=== PATIENT | male | born 1940 | race Two or more races ===

== ENCOUNTER 2018-04-01 07:29 | Day surgery (SDC) | payer OTHER ==
--- NOTE | 2018-03-02 14:35 | HP ---
DATE OF ADMISSION: 03/11/2018 DATE OF DICTATION: 01/28/2018 DATE OF SURGERY: 03/11/2018 REASON FOR ADMISSION: Bilateral inguinal hernias. BRIEF HISTORY: This is a 77-year-old gentleman with greater than a 7-year history of having a left inguinal hernia. Patient states he has had progressive bulge in the left groin since that time and he also has a bulge in the right groin. Now with prolonged standing or mild strenuous activity, he has discomfort in the left groin region. This has prompted him to undergo a hernia repair. He has had no change in bowel habits. No nausea, no vomiting. PAST MEDICAL HISTORY: Patient has a history of cardiac disease, status post stent. He has a history of prostatism as well. PAST SURGICAL HISTORY: None. MEDICATIONS: Plavix, , baby aspirin, and Rapaflo. ALLERGIES: None. SOCIAL HISTORY: Patient does not smoke nor drink. PHYSICAL EXAMINATION: Patient examined in erect and supine position. He is placed through Valsalva maneuvers. The patient has a chronically incarcerated umbilical hernia, which is an incidental finding. The remainder of the abdominal examination is unremarkable. He has 2 inguinal hernias, left much greater than right. The left is a left inguinal hernia with extension in the proximal scrotum. The right one is medium to large hernia without extension to the proximal scrotum. Both scrotum and testicles are within normal limits and both hernias appear to be reducible. IMPRESSION/PLAN: Bilateral inguinal hernias: This is a 77-year-old gentleman becoming more symptomatic from a longstanding left inguinal hernia. On physical examination, he is noted to have a right inguinal hernia as well. I would recommend a laparoscopic repair of the bilateral inguinal hernias with mesh. Prior to this recommendation, we have discussed at length (1 hour) regarding the various surgical approaches such as open, lap, robotic with and without mesh. Prior to surgical intervention, the patient is being worked up for prostate cancer at this time. He is to undergo a cystoscopy with prostate biopsy in the next week or so. Pending these results, he will then undergo possibly a TURP type procedure. I have explained to him that we cannot do his hernia repair, if he has a TURP, for several weeks after the procedure due to translocation and microbacteria. The patient, therefore, will schedule surgery for some time in March, assuming he does not have prostate cancer. Prior to surgery, the patient understands he needs to come off of Plavix for approximately 5 days and not restart his Plavix for another 3 days. He will discuss this with his wet room supervisor. If this is possible, the patient will be done laparoscopically. If this is not possible, will plan to do an open left inguinal hernia repair. With regard to the umbilical hernia, this will not be addressed at this setting. The indications, alternatives, and complications discussed, questions answered. Will plan to obtain written consent the day of surgery. LEON TAVARES M.D. [id number] cc: Michael Hernandez MD, [place], [place], [phone]
[2018-03-30 17:35] VITALS: BMI 24.4
[2018-04-01] MEDS ORDERED: BUPIVACAINE HCL/PF 0.5% (5MG/ML) 10 ML VIAL ONE (07:39)
[2018-04-01] MEDS ORDERED: DEXAMETHASONE SOD PHOSPHATE 4 MG/1 ML VIAL ONE ×2 (07:39→08:17)
[2018-04-01] MEDS ORDERED: ePHEDrine SULFATE 50 MG/1 ML AMPULE ONE (08:12)
[2018-04-01] MEDS ORDERED: ceFAZolin SODIUM 1 GM VIAL ONE ×2 (08:12→08:17)
[2018-04-01] MEDS ORDERED: PROPOFOL 20 ML ONE ×4 (08:13)
[2018-04-01] MEDS ORDERED: ROCURONIUM BROMIDE 50 MG/5 ML VIAL ONE ×4 (08:13)
[2018-04-01] MEDS ORDERED: SUCCINYLCHOLINE CHLORIDE 200 MG/10 ML VIAL ONE (08:13)
[2018-04-01] MEDS ORDERED: fentaNYL CITRATE 250 MCG/5 ML VIAL ONE (08:14)
[2018-04-01] MEDS ORDERED: MIDAZOLAM HCL 2 MG/2 ML SINGLE DOSE VIAL ONE ×2 (08:14→08:32)
[2018-04-01] MEDS ORDERED: KETOROLAC TROMETHAMINE 30 MG/1 ML VIAL ONE (08:17)
[2018-04-01] MEDS ORDERED: DEXAMETHASONE SOD PHOSPHATE/PF 10 MG/ML SDV ONE (08:31)
[2018-04-01] MEDS ORDERED: ROPIVACAINE HCL 0.5% 30ML VIAL ONE (08:31)
[2018-04-01] MEDS ORDERED: ceFAZolin SODIUM 1 GM VIAL IVPB ONE (09:21)
[2018-04-01] MEDS ORDERED: NEOSTIGMINE METHYLSULFATE 0.5 MG/ML - 10 ML MDV ONE (09:51)
--- NOTE | 2018-04-01 10:04 | HP ---
DATE OF ADMISSION: 04/01/2018 BRIEF HISTORY: This is a 77-year-old gentleman who I initially evaluated in December 2017. Please refer to my H&P from that time for complete details. This is being re-dictated due to [facility] 30-day guidelines. Patient reevaluated today. He is a 77-year-old gentleman with a 7-year history of having left inguinal hernia. On physical examination, he has a contralateral hernia as well. He is here for both hernia repairs. PAST MEDICAL HISTORY: Significant for cardiac disease, status post stent, prostatism. PAST SURGICAL HISTORY: None. MEDICATIONS: Plavix, baby aspirin and Rapaflo. ALLERGIES: None. SOCIAL HISTORY: He a nonsmoker, drinks. PHYSICAL EXAMINATION: Abdomen: The abdomen is soft, nontender, nondistended. He has bilateral inguinal hernias, left greater than right. The left hernia extends into the proximal scrotum. Bilateral large inguinal hernias, left greater than right. Patient has a left inguinal scrotal hernia, which is chronically incarcerated and cannot be completely reduced. He is now here for repair of both hernias. The indications, alternatives and complications discussed, questions answered. Will plan to obtain written consent today at surgery. Eugenio COPELAND [id number] cc: Michael Hernandez M.D.
[2018-04-01] MEDS ORDERED: ONDANSETRON 4 MG/2 ML VIAL IVPUSH PRN (11:17)
[2018-04-01] MEDS ORDERED: oxyCODONE HCL 5 MG TABLET PO PRN ×2 (11:17)
[2018-04-01] MEDS ORDERED: LACTATED RINGERS SOLUTION 1,000 ML IV SCH (11:30)
[2018-04-01 11:41] VITALS: TEMP 97.7
--- NOTE | 2018-04-01 12:21 | OP ---
DATE OF OPERATION: 04/01/2018 PREOPERATIVE DIAGNOSES: Large complex left inguinal scrotal hernia, chronically incarcerated; right inguinal hernia. POSTOPERATIVE DIAGNOSES: Bilateral incarcerated, direct inguinal hernias. PROCEDURE: Laparoscopic repair of incarcerated left inguinal hernia with mesh, laparoscopic repair of incarcerated right inguinal hernia with mesh. SURGEON: Nile Huang MD TRANSPORT PILOT: Donn Eller DO ANESTHESIA: Gorge Veliz MD (general). ESTIMATED BLOOD LOSS: Minimal. SPECIMEN: None. INDICATION FOR PROCEDURE: This is a 77-year-old gentleman symptomatic from a very longstanding left inguinal hernia. He is now here for operative repair. DESCRIPTION OF PROCEDURE: The patient was identified and appropriately positioned on the operating table. After placement of general anesthesia, the abdomen was prepped and draped in the usual sterile fashion with ChloraPrep. An infraumbilical incision was made and deepened through the subcutaneous tissue. The fascia on the left was divided, the muscles split under direct vision. Dissector balloon followed by structural balloon placed. Also, under direct vision, a suprapubic 11-mm port placed. The following structures on the left side identified: Pubic tubercle, Quentin ligament, inferior epigastric vessels, spermatic cord, and lateral abdominal wall. During this dissection, patient had incarcerated direct inguinal hernia containing fat. This was reduced back in the preperitoneal space. He had a small indirect inguinal hernia sac, also reduced back in the preperitoneal space. A 4.5 x 6 piece of Versatex mesh was keel placed through the suprapubic port site. The mesh was wrapped around the cord structures laterally to reconstruct the internal ring. Laterally, the mesh anchored to the anterior abdominal wall and lateral abdominal wall. Medially, the mesh anchored to the anterior abdominal wall, pubic tubercle, and Quentin ligament. During reduction of the sac, the patient had a small peritoneotomy. It was subsequently closed with a [employer] clip linux server engineer. Upon completion of the left side, similar structures on the right side identified. On the right side, he had a direct component containing fat and a portion of bladder. This reduced back in the preperitoneal space with blunt dissection. He had no true indirect inguinal hernia sac. Another 4.5 x 6 piece of Versatex mesh was keel placed through the suprapubic port site. The mesh was wrapped around the cord structures laterally to reconstruct the internal ring. Laterally, the mesh anchored to the anterior abdominal wall and lateral abdominal wall. Medially, the mesh well overlapped in the midline, anchored to the anterior abdominal wall, pubic tubercle, and Quentin ligament. The preperitoneal space was desufflated under direct vision. The operative field noted to be hemostatic. The fascia at both port sites reapproximated with interrupted 0 Vicryl suture. All skin closed with 4-0 subcuticular Biosyn, followed by Dermabond. All anterior abdominal wall and lateral abdominal wall anchors placed under direct counterpalpation. The mesh used was Versatex 4-1/2 to 5 inches x 6 inches, and the peritoneotomy was closed with the [employer] 10-mm clip linux server engineer. At the conclusion of this case, sponge and needle counts were correct. ATTESTATION: A brief operative note handwritten on the preprinted form. [facility] queried prior to giving any narcotics. Eugenio COPELAND [id number] cc: Michael Hernandez MD MTDD
[2018-04-01 16:59] VITALS: BP 136/76; PULSE 88
== END 2018-04-01 16:30 | disposition home or self-care (01) ==
LOC: JASU-SURG 07:29
PROVIDERS: ATTEND Surgery
PROC: 0YUA4JZ Supplement Bilateral Inguinal Region with Synthetic Substitute, Percutaneous Endoscopic Approach (ICD-10-PCS; principal; 2018-04-01 09:00)
DX: K40.00 Bilateral inguinal hernia, with obstruction, without gangrene, not specified as recurrent (principal)
CPT/HCPCS: 94760

== ENCOUNTER 2018-04-02 06:14 | Emergency (ER) | payer OTHER ==
[2018-04-02 06:46] VITALS: BP 182/83; PULSE 85; TEMP 98.9; BMI 25.8
[2018-04-02 06:51] LABS: URINE APPEARANCE CLEAR; URINE BILIRUBIN NEGATIVE (<2.0 mg/dL); URINE COLOR LTYELLOW; URINE GLUCOSE (UA) 1+ (NEGATIVE); URINE KETONE NEGATIVE (NEGATIVE); URINE LEUK ESTERASE NEGATIVE (NEGATIVE); URINE NITRITE NEGATIVE (NEGATIVE); URINE PROTEIN NEGATIVE (NEGATIVE); URINE UROBILINOGEN NEGATIVE mg/dL (0.2-1.0)
--- NOTE | 2018-04-02 07:11 | PDOC ---
Attending Attestation - Resident Resident Name: Vic Grove - ED Attending Attestation I have performed the following: I have examined & evaluated the patient, The case was reviewed & discussed with the resident, I agree w/resident's findings & plan, Exceptions are as noted - HPI HPI: 04/02/18 07:12 77y M hx of bph, sp hernia repair sp bustillo placement during procedure yesterday presents with urinary retention and hesitency. complaining of lower abd pressure bustillo placed after ED arrival with resolution of sypmtoms - Physicial Exam PE: 04/02/18 07:34 general: well appearing, no acute distress gu: has bustillo in place abd: midline scar romie tis slightly ecchymotic, otherwise c/d/i, slightly tender to palpation at site of incision, no rebound/guarding - Medical Decision Making 04/02/18 07:32 ua neg for uti will dc the pt to fu with dr. kumari
--- NOTE | 2018-04-02 07:23 | PDOC ---
History of Present Illness - General Chief Complaint: Urinary Problem Stated Complaint: URINARY PROBLEM Time Seen by Provider: 04/02/18 07:01 History Source: Patient Exam Limitations: No Limitations - History of Present Illness Initial Comments: 04/02/18 07:17 Patient is a 77M with history of CAD s/p stents, abdominal hernia repair yesterday, and enlarged prostate here today complaining of urinary retention. He states that he has only been able to dribble out a small amount of urine starting yesterday. Endorses subjective fevers, chills and lower abdominal pressure. Denies nausea, vomiting, leg swelling, history of blood clots, chest pain, and shortness of breath. Past History - Past Medical History Allergies/Adverse Reactions: Allergies Allergy/AdvReac Type Severity Reaction Status Date / Time No Known Allergies Allergy Verified 04/02/18 06:28 Home Medications: Ambulatory Orders Clopidogrel Bisulfate [Plavix -] 75 mg PO DAILY 01/31/14 Simvastatin 20 mg PO DAILY 03/30/18 Aspirin [Aspirin EC] 81 mg PO DAILY 04/01/18 Oxycodone HCl/Acetaminophen [Percocet 5-325 mg Tablet] 1 tab PO Q4H PRN #20 tablet MDD 6 04/01/18 Silodosin [Rapaflo] 8 mg PO DAILY 04/01/18 Anemia: No Asthma: No Cancer: No Cardiac Disorders: Yes (MD 10 YEARS AGO. STENTS X4.) CVA: No COPD: No CHF: No Dementia: No Diabetes: No GI Disorders: No Disorders: No HTN: Yes Hypercholesterolemia: Yes Liver Disease: No Psychiatric Problems: Yes (anxiety) Seizures: No Thyroid Disease: No - Surgical History Abdominal Surgery: No Appendectomy: No Cardiac Surgery: Yes (STENTS X4.) Cholecystectomy: No Lung Surgery: No Neurologic Surgery: No Orthopedic Surgery: No - Suicide/Smoking/Psychosocial Hx Smoking History: Never smoked Have you smoked in the past 12 months: No Information on smoking cessation initiated: No Hx Alcohol Use: No Drug/Substance Use Hx: No Substance Use Type: Alcohol Hx Substance Use Treatment: No Review of Systems - Review of Systems Comments:: 04/02/18 07:20 GENERAL/CONSTITUTIONAL: Positive for fever or chills. No weakness. HEAD, EYES, EARS, NOSE AND THROAT: No change in vision. No sore throat. CARDIOVASCULAR: No chest pain or shortness of breath RESPIRATORY: No cough, wheezing, or hemoptysis. GASTROINTESTINAL: No nausea, vomiting, diarrhea or constipation. GENITOURINARY: Positive for dysuria, frequency and blood in urine MUSCULOSKELETAL: No joint or muscle swelling or pain. No neck or back pain. SKIN: No rash NEUROLOGIC: No headache, vertigo, loss of consciousness, or change in strength/ sensation. HEMATOLOGIC/LYMPHATIC: No anemia, easy bleeding, or history of blood clots. ALLERGIC/IMMUNOLOGIC: No hives or skin allergy. *Physical Exam - Vital Signs Last Vital Signs Temp Pulse Resp BP Pulse Ox 98.9 F 85 18 182/83 98 04/02/18 06:28 04/02/18 06:28 04/02/18 06:28 04/02/18 06:28 04/02/18 06:28 - Physical Exam Comments: 04/02/18 07:21 GENERAL: Awake, alert, and fully oriented, in no acute distress, bustillo placed HEAD: No signs of trauma, normocephalic, atraumatic EYES: PERRLA, EOMI, sclera anicteric, conjunctiva clear NECK: Normal ROM, supple, no lymphadenopathy, JVD, or masses LUNGS: No distress, speaks full sentences, clear to auscultation bilaterally HEART: Regular rate and rhythm, normal S1 and S2, no murmurs, rubs or gallops, peripheral pulses normal and equal bilaterally. ABDOMEN: Soft, nontender, normoactive bowel sounds. No guarding, no rebound. No masses EXTREMITIES: Normal inspection, Normal range of motion, no edema. No clubbing or cyanosis. NEUROLOGICAL: Cranial nerves II through XII grossly intact. Normal speech, no focal sensorimotor deficits SKIN: Warm, Dry, normal turgor, no rashes or lesions noted. ED Treatment Course - ADDITIONAL ORDERS Additional order review: Laboratory Results 04/02/18 06:30 Urine Color Ltyellow Urine Appearance Clear Urine pH 6.0 Ur Specific [place] 1.012 Urine Protein Negative Urine Glucose (UA) 1+ H Urine Ketones Negative Urine Blood Negative Urine Nitrite Negative Urine Bilirubin Negative Urine Urobilinogen Negative Ur Leukocyte Esterase Negative Medical Decision Making - Medical Decision Making 04/02/18 07:21 Patient is 77M with history of CAD and enlarged prostate here today with urinary retention. Vital signs stable. Patient drained 1.1L after placement. Urologist is [place]. Will evaluate further with UA. Call out to Dr Duncan , will d/c with leg bag. 04/02/18 07:24 Laboratory Tests 04/02/18 06:30 Urine Nitrite Negative Ur Leukocyte Esterase Negative UA negative. *DC/Admit/Observation/Transfer Diagnosis at time of Disposition: Urinary retention - Discharge Dispostion Disposition: HOME Condition at time of disposition: Good Decision to Admit order: No - Referrals Referrals: Michael Hernandez MD [Primary Care Provider] - Donn Duncan MD [Staff Physician] - - Patient Instructions Printed Discharge Instructions: How to Care for Your Bustillo Catheter -- Male, DI for Urinary Retention in Men Additional Instructions: Please return if you have any new, worsening or concerning symptoms. Please see the packet of information for how to care for your bustillo catheter. Please call Dr Duncan today to setup follow up, his number is included in your discharge instructions. - Post Discharge Activity
== END 2018-04-02 07:38 | disposition home or self-care (01) ==
LOC: JER 06:14
PROC: 0T9B70Z Drainage of Bladder with Drainage Device, Via Natural or Artificial Opening (ICD-10-PCS; principal; 2018-04-02)
DX: R33.9 Retention of urine, unspecified (principal); I25.10 Atherosclerotic heart disease of native coronary artery without angina pectoris; I25.2 Old myocardial infarction; I10 Essential (primary) hypertension; E78.00 Pure hypercholesterolemia, unspecified; F41.9 Anxiety disorder, unspecified; Z95.5 Presence of coronary angioplasty implant and graft
CPT/HCPCS: 51702; 81003; 87086; 99283-25

== ENCOUNTER 2018-04-05 22:03 | Emergency (ER) | payer OTHER ==
[2018-04-05 22:07] VITALS: BP 141/71; PULSE 83; TEMP 98.2; BMI 25.1
--- NOTE | 2018-04-05 22:18 | PDOC ---
History of Present Illness - General Chief Complaint: Urinary Problem Stated Complaint: URINARY PROBLEM Time Seen by Provider: 04/05/18 22:10 History Source: Patient Exam Limitations: No Limitations - History of Present Illness Initial Comments: This is a 77 YOM who is POD #4 from laparoscopic bilateral inguinal hernia repair (with outside surgeon), with h/o CAD s/p multiple stents, BPH with urinary retention requiring Marrero catheter placed 04/02/18 and removed this afternoon at about 1500 at his urologist's office (in [place]), who p/w inability to urinate since shortly after the catheter was removed. He was initially able to urinate normally, but now has only been able to urinate a few drops. He feels that his lower abdomen is distended and notes worsened lower abdominal pain. Today in the urologist's office he was given a prescription for one dose of ciprofloxacin to prevent UTI, which he took this afternoon. Past History - Past Medical History Allergies/Adverse Reactions: Allergies Allergy/AdvReac Type Severity Reaction Status Date / Time No Known Allergies Allergy Verified 04/05/18 22:06 Home Medications: Ambulatory Orders Clopidogrel Bisulfate [Plavix -] 75 mg PO DAILY 01/31/14 Simvastatin 20 mg PO DAILY 03/30/18 Aspirin [Aspirin EC] 81 mg PO DAILY 04/01/18 Oxycodone HCl/Acetaminophen [Percocet 5-325 mg Tablet] 1 tab PO Q4H PRN #20 tablet MDD 6 04/01/18 Silodosin [Rapaflo] 8 mg PO DAILY 04/01/18 Anemia: No Asthma: No Cancer: No Cardiac Disorders: Yes (MS 10 YEARS AGO. STENTS X4.) CVA: No COPD: No CHF: No Dementia: No Diabetes: No GI Disorders: No Disorders: No HTN: Yes Hypercholesterolemia: Yes Liver Disease: No Psychiatric Problems: Yes (anxiety) Seizures: No Thyroid Disease: No - Surgical History Abdominal Surgery: No Appendectomy: No Cardiac Surgery: Yes (STENTS X4.) Cholecystectomy: No Lung Surgery: No Neurologic Surgery: No Orthopedic Surgery: No - Suicide/Smoking/Psychosocial Hx Smoking History: Never smoked Have you smoked in the past 12 months: No Hx Alcohol Use: No Drug/Substance Use Hx: No Substance Use Type: Alcohol Hx Substance Use Treatment: No Review of Systems - Review of Systems Able to Perform ROS?: Yes Constitutional: Yes: Chills. No: Fever, Unexplained wgt Loss HEENTM: No: Nose Congestion, Throat Pain Respiratory: No: Cough, Shortness of Breath Cardiac (ROS): No: Chest Pain, Palpitations ABD/GI: Yes: Other (lower abdominal pain and distention). No: Constipated, Diarrhea, Nausea, Vomiting : Yes: Other (urinary retention). No: Burning, Dysuria Musculoskeletal: No: Back Pain, Neck Pain Integumentary: No: Bruising, Rash Neurological: No: Headache, Numbness, Tingling, Weakness, Dizziness Endocrine: No: Unexplained Weight Gain, Unexplained Weight Loss *Physical Exam - Vital Signs Last Vital Signs Temp Pulse Resp BP Pulse Ox 98.2 F 83 18 141/71 98 04/05/18 22:06 04/05/18 22:06 04/05/18 22:06 04/05/18 22:06 04/05/18 22:06 - Physical Exam General Appearance: Yes: Nourished, Other (alert and oriented eldelry male accompanied by family at bedside, appears uncomfortable, wincing with pain when attempting to urinate). No: Apparent Distress HEENT: positive: EOMI, Normal Voice, Hearing Grossly Normal. negative: Scleral Icterus (R), Scleral Icterus (L), Nasal Congestion Neck: positive: Trachea midline, Supple. negative: Tender, Rigid Respiratory/Chest: positive: Lungs Clear, Normal Breath Sounds. negative: Respiratory Distress, Crackles, Rhonchi, Stridor, Wheezing Cardiovascular: positive: Regular Rhythm, Regular Rate. negative: Murmur Gastrointestinal/Abdominal: positive: Normal Bowel Sounds, Tender (mild suprapubic tenderness to palpation, periumbilical ecchymosis and healing laparoscopy incisions noted which are CDI), Soft. negative: Organomegaly, Pulsatile Mass, Guarding Male Genitalia: positive: other (indwelling Marrero catheter) Musculoskeletal: positive: Normal Inspection. negative: Decreased Range of Motion, Vertebral Tenderness Extremity: positive: Normal Capillary Refill, Normal Inspection, Normal Range of Motion. negative: Tender, Cyanosis Integumentary: positive: Normal Color, Dry, Warm. negative: Erythema, Rash, Bruising Neurologic: positive: litigation partner II-XII NML intact, Fully Oriented, Alert, Normal Mood/ Affect, Normal Response, Motor Strength 5/5 ED Treatment Course - LABORATORY CBC & Chemistry Diagram: 04/05/18 23:18 Medical Decision Making - Medical Decision Making Adult male Pt w/ h/o BPH p/w urinary retention and painful urination since this afternoon when Marrero removed.. Initial Vital Signs Temp Pulse Resp BP Pulse Ox 98.2 F 83 18 141/71 98 04/05/18 22:06 04/05/18 22:06 04/05/18 22:06 04/05/18 22:06 04/05/18 22:06 Exam: DDX IBNLT: BPH with obstruction, UTI, pyelonephritis, ureteral stone, interstitial cystitis, neurogenic bladder, urethritis, prostatitis, STI/STD, epididymitis, orchitis, torsion, hernia, etc. Extra concern for post-obstructive diuresis after Marrero replacement. W/U ordered: UA UCx CMP TX ordered: Marrero Laboratory Tests 04/05/18 04/06/18 23:18 00:22 Sodium 131 L Potassium 3.4 L Chloride 98 Carbon Dioxide 23 Anion Gap 10 BUN 12 Creatinine 0.9 Creat Clearance w eGFR > 60 Random Glucose 127 H Calcium 8.6 Total Bilirubin 1.3 H AST 17 ALT 27 Alkaline Phosphatase 66 Total Protein 7.0 Albumin 3.8 Urine Color Straw Urine Appearance Clear Urine pH 6.0 Ur Specific [place] 1.004 Urine Protein Negative Urine Glucose (UA) Negative Urine Ketones Negative Urine Blood 2+ H Urine Nitrite Negative Urine Bilirubin Negative Urine Urobilinogen Negative Ur Leukocyte Esterase Negative Urine WBC (Auto) 1 Urine RBC (Auto) <1 Urine Mucus Rare Reassessment: Exam Laboratory Tests 04/05/18 04/06/18 23:18 00:22 Sodium 131 L Potassium 3.4 L Chloride 98 Carbon Dioxide 23 Anion Gap 10 BUN 12 Creatinine 0.9 Creat Clearance w eGFR > 60 Random Glucose 127 H Calcium 8.6 Total Bilirubin 1.3 H AST 17 ALT 27 Alkaline Phosphatase 66 Total Protein 7.0 Albumin 3.8 Urine Color Straw Urine Appearance Clear Urine pH 6.0 Ur Specific [place] 1.004 Urine Protein Negative Urine Glucose (UA) Negative Urine Ketones Negative Urine Blood 2+ H Urine Nitrite Negative Urine Bilirubin Negative Urine Urobilinogen Negative Ur Leukocyte Esterase Negative Urine WBC (Auto) 1 Urine RBC (Auto) <1 Urine Mucus Rare Patient puts out 1.6 liters urine since Marrero placement. However CMP is wnl and UA is not concerning. I have low suspicion for post-obstructive diuresis and kidney damage. The Pt is appropriate for discharge with close outpatient follow up. Workup is not concerning for emergency-level pathology at this time. The Pt is comfortable with this plan and will follow up with their PCP and urologist in 1-3 days. Specific return precautions are discussed and they will come back to the ER if necessary. *DC/Admit/Observation/Transfer Diagnosis at time of Disposition: Urinary retention BPH (benign prostatic hyperplasia) Qualifiers: Lower urinary tract symptom presence: symptoms present Lower urinary tract symptom detail: urinary obstruction Qualified Code(s): N40.1 - Benign prostatic hyperplasia with lower urinary tract symptoms - Discharge Dispostion Disposition: HOME Condition at time of disposition: Stable Decision to Admit order: No - Referrals Referrals: Michael Hernandez MD [Primary Care Provider] - - Patient Instructions Printed Discharge Instructions: DI for Benign Prostatic Hyperplasia Additional Instructions: You were seen in the ER for urinary retention and lower abdominal pain. We placed a Marrero catheter and this relieved your symptoms. We did blood and urine labs, and there were no abnormalities. After our assessment, we do not believe you are having a medical emergency at this time, and we believe you are safe to go home. Please take your regular prostate medications and follow up with your urologist tomorrow. Follow up with your primary doctor in 1-3 days. Call their clinic [facility], tell them you were seen in the ER, and tell them you need an appointment. Please come back to the ER at any time, 24 hours a day, for any new or worsening symptoms, like worsened pain or urine retention, discharge, fever, testicular/scrotal pain or swelling, or other symptoms. If you are having severe or life threatening symptoms, or symptoms that make it unsafe to drive or have someone drive you, please call 911. - Post Discharge Activity
[2018-04-05 23:49] LABS: ALBUMIN 3.8 g/dl (3.4-5.0); ANION GAP 10 (8-16); BLOOD UREA NITROGEN 12 mg/dL (7-18); CALCIUM 8.6 mg/dL (8.5-10.1); CHLORIDE 98 mmol/L (98-107); CO2 23 mmol/L (21-32); CREATININE 0.9 mg/dL (0.7-1.3); GLUCOSE,RANDOM 127 mg/dL (74-106); SGPT/ALT 27 U/L (12-78); SODIUM 131 mmol/L (136-145)
[2018-04-05 23:50] LABS: ALK PHOS 66 U/L (45-117); BILIRUBIN,TOTAL 1.3 mg/dL (0.2-1.0)
[2018-04-05 23:53] LABS: POTASSIUM 3.4 mmol/L (3.5-5.1); SGOT/AST 17 U/L (15-37)
--- NOTE | 2018-04-06 00:22 | PDOC ---
Attending Attestation - Resident Resident Name: MccarthyDesire - ED Attending Attestation I have performed the following: I have examined & evaluated the patient, The case was reviewed & discussed with the resident, I agree w/resident's findings & plan, Exceptions are as noted - HPI HPI: 04/06/18 06:01 Agree with residents note - Physicial Exam PE: 04/06/18 06:01 Agree with residents note - Medical Decision Making 04/06/18 00:26 Patient postop day 4 status post laparoscopic bilateral hernia repair had Marrero removed this afternoon now with urinary retention. Marrero replaced 600 mL drained we'll check chemistry and UA Patient feels much better comfortable no abdominal pain on exam Patient will follow up with his urologist in 1-2 days Findings, need for follow-up and strict return instructions discussed patient.
[2018-04-06 00:35] LABS: URINE APPEARANCE CLEAR; URINE BILIRUBIN NEGATIVE (<2.0 mg/dL); URINE BLOOD 2+ (NEGATIVE); URINE COLOR STRAW; URINE GLUCOSE (UA) NEGATIVE (NEGATIVE); URINE KETONE NEGATIVE (NEGATIVE); URINE LEUK ESTERASE NEGATIVE (NEGATIVE); URINE NITRITE NEGATIVE (NEGATIVE); URINE PROTEIN NEGATIVE (NEGATIVE); URINE UROBILINOGEN NEGATIVE mg/dL (0.2-1.0)
[2018-04-06 00:54] LABS: URINE MUCUS RARE
== END 2018-04-06 01:56 | disposition home or self-care (01) ==
LOC: JER 22:03
PROC: 0T9B70Z Drainage of Bladder with Drainage Device, Via Natural or Artificial Opening (ICD-10-PCS; principal; 2018-04-05)
DX: R33.9 Retention of urine, unspecified (principal); N40.1 Benign prostatic hyperplasia with lower urinary tract symptoms; I25.10 Atherosclerotic heart disease of native coronary artery without angina pectoris; Z95.5 Presence of coronary angioplasty implant and graft; I10 Essential (primary) hypertension; F41.9 Anxiety disorder, unspecified; I25.2 Old myocardial infarction
CPT/HCPCS: 36415; 80053; 81003; 81015; 87086; 99281-25

== ENCOUNTER 2018-04-24 11:59 | Inpatient (IN) | payer OTHER ==
[2018-04-24] MEDS ORDERED: SODIUM CHLORIDE 1,000 ML IV STA ×2 (12:28→13:45)
[2018-04-24] MEDS ORDERED: ACETAMINOPHEN 1000 MG/100 ML VIAL (NON FORMULARY) IVPB ONE (12:30)
[2018-04-24] MEDS ORDERED: MORPHINE SULFATE 2 MG/ML VIAL IVPUSH ONE (12:34)
[2018-04-24] MEDS ORDERED: MORPHINE SULFATE 2 MG/ML VIAL ONE ×3 (12:42→16:24)
[2018-04-24] MEDS ORDERED: ACETAMINOPHEN INJECTION 100 ML IVPB ONE (12:42)
--- NOTE | 2018-04-24 12:53 | PDOC ---
History of Present Illness <Logan Fine - Last Filed: 04/24/18 14:14> - History of Present Illness Initial Comments: 04/24/18 12:47 "The patient is a 77 year old male with a significant PMH of hernia surgery on c/b urinary retention s/p bustillo placement, recent UTI, AL (s/p stents, on Plavix), HTN, and hyperlipidemia who presents to the emergency department with suprapubic pain, rectal burning, fevers, chills, and decreased appetite x2 days. The patients son states the patient has had a bustillo since 04/01 for urinary retention. He has failed multiple trials of void since then. Yesterday, pt was evaluated by his urologist and had a procedure done on his prostate. Pt subsequently developed severe rectal pain. Denies BRBPR or dark tarry stools. Pt was evaluated at [place] ED yesterday for this pain and was diagnosed with UTI. Pt was started on levaquin and pyridium, but patient presents today with persistent dysuria and rectal burning as well as subjective fevers, chills , and decreased appetite. The patient denies chest pain, shortness of breath, headache and dizziness. Denies nausea, vomit, diarrhea and constipation. Allergies: NKA Past surgical history: Cardiac stents x4. Social history: Occasional alcohol use. No reported cigarette or drug use. PCP: Dr. Michael Hernandez <Michael Garcia - Last Filed: 04/24/18 14:56> - General Chief Complaint: Pain, Acute Stated Complaint: Shortness of Breath Time Seen by Provider: 04/24/18 12:11 Past History <Logan Fine - Last Filed: 04/24/18 14:14> - Past Medical History Anemia: No Asthma: No Cancer: No Cardiac Disorders: Yes (AL 10 YEARS AGO. STENTS X4.) CVA: No COPD: No CHF: No Dementia: No Diabetes: No GI Disorders: No Disorders: No HTN: Yes Hypercholesterolemia: Yes Liver Disease: No Psychiatric Problems: Yes (anxiety) Seizures: No Thyroid Disease: No - Surgical History Abdominal Surgery: No Appendectomy: No Cardiac Surgery: Yes (STENTS X4.) Cholecystectomy: No Lung Surgery: No Neurologic Surgery: No Orthopedic Surgery: No - Immunization History Immunization Up to Date: Yes - Suicide/Smoking/Psychosocial Hx Smoking History: Never smoked Have you smoked in the past 12 months: No Information on smoking cessation initiated: No Hx Alcohol Use: No Drug/Substance Use Hx: No Substance Use Type: Alcohol Hx Substance Use Treatment: No <Michael Garcia - Last Filed: 04/24/18 14:56> - Past Medical History Allergies/Adverse Reactions: Allergies Allergy/AdvReac Type Severity Reaction Status Date / Time No Known Allergies Allergy Verified 04/24/18 12:04 Home Medications: Ambulatory Orders Clopidogrel Bisulfate [Plavix -] 75 mg PO DAILY 01/31/14 Simvastatin 20 mg PO DAILY 03/30/18 Aspirin [Aspirin EC] 81 mg PO DAILY 04/01/18 Oxycodone HCl/Acetaminophen [Percocet 5-325 mg Tablet] 1 tab PO Q4H PRN #20 tablet MDD 6 04/01/18 Silodosin [Rapaflo] 8 mg PO DAILY 04/01/18 Review of Systems - Review of Systems Comments:: 04/24/18 12:54 "GENERAL/CONSTITUTIONAL: (+) Fevers (+) Chills. (+) Decreased appetite. No weakness. HEAD, EYES, EARS, NOSE AND THROAT: No change in vision. No ear pain or discharge. No sore throat. CARDIOVASCULAR: No chest pain or shortness of breath. RESPIRATORY: No cough, wheezing, or hemoptysis. GASTROINTESTINAL: (+) Rectal burning. No nausea, vomiting, diarrhea or constipation. GENITOURINARY: (+) Dysuria. No frequency, or change in urination. MUSCULOSKELETAL: No joint or muscle swelling or pain. No neck or back pain. SKIN: No rash NEUROLOGIC: No headache, vertigo, loss of consciousness, or change in strength/ sensation. ENDOCRINE: No increased thirst. No abnormal weight change. HEMATOLOGIC/LYMPHATIC: No anemia, easy bleeding, or history of blood clots. ALLERGIC/IMMUNOLOGIC: No hives or skin allergy. " <Michael Garcia - Last Filed: 04/24/18 14:56> *Physical Exam - Vital Signs Last Vital Signs Temp Pulse Resp BP Pulse Ox 98.0 F 94 H 17 116/68 100 04/24/18 12:05 04/24/18 12:33 04/24/18 12:05 04/24/18 12:05 04/24/18 12:33 <Logan Fine - Last Filed: 04/24/18 14:14> - Vital Signs Last Vital Signs Temp Pulse Resp BP Pulse Ox 98.0 F 104 H 17 116/68 98 04/24/18 12:05 04/24/18 12:05 04/24/18 12:05 04/24/18 12:05 04/24/18 12:05 - Physical Exam Comments: 04/24/18 12:54 "GENERAL: Awake, alert, and fully oriented, in no acute distress. HEAD: No signs of trauma EYES: PERRLA, EOMI, sclera anicteric, conjunctiva clear ENT: Auricles normal inspection, hearing grossly normal, nares patent, oropharynx clear without exudates. Moist mucosa NECK: Nontender, no stepoffs, Normal ROM, supple, no lymphadenopathy, JVD, or masses LUNGS: Breath sounds equal, clear to auscultation bilaterally. No wheezes, and no crackles HEART: Regular rate and rhythm, normal S1 and S2, no murmurs, rubs or gallops ABDOMEN: Soft, nontender, normoactive bowel sounds. No guarding, no rebound. No masses EXTREMITIES: Normal range of motion, no edema. No clubbing or cyanosis. No cords , erythema, or tenderness NEUROLOGICAL: Cranial nerves II through XII intact. 5/5 strength and sensation in all extremities, Normal speech, normal gait, normal cerebellar function SKIN: Warm, Dry, normal turgor, no rashes or lesions noted. : Bustillo in place draining dark yellow urine, + L CVA tenderness <Michael Garcia - Last Filed: 04/24/18 14:56> ED Treatment Course - LABORATORY CBC & Chemistry Diagram: 04/24/18 12:52 04/24/18 12:52 - ADDITIONAL ORDERS Additional order review: Laboratory Results 04/24/18 04/24/18 04/24/18 13:14 12:52 12:52 PT with INR INR PTT (Actin FS) VBG pH POC VBG pCO2 POC VBG pO2 Mixed VBG HCO3 Sodium Potassium Chloride Carbon Dioxide Anion Gap BUN Creatinine Creat Clearance w eGFR Random Glucose Lactic Acid 1.9 Calcium Total Bilirubin AST ALT Alkaline Phosphatase Troponin I < 0.02 Total Protein Albumin Urine Color Dk yellow Urine Appearance Clear Urine pH 6.0 Ur Specific Collins 1.005 Urine Protein 1+ H Urine Glucose (UA) Negative Urine Ketones Trace H Urine Blood 3+ H Urine Nitrite Positive Urine Bilirubin Negative Urine Urobilinogen 2.0 Ur Leukocyte Esterase 1+ H Urine WBC (Auto) 12 Urine RBC (Auto) 20 Urine Bacteria Rare 04/24/18 04/24/18 04/24/18 12:52 12:52 12:52 PT with INR 14.90 H INR 1.32 H PTT (Actin FS) 31.2 VBG pH 7.51 H POC VBG pCO2 27.2 L POC VBG pO2 32.8 Mixed VBG HCO3 21.7 Sodium 133 L Potassium 3.4 L Chloride 98 Carbon Dioxide 22 Anion Gap 13 BUN 14 Creatinine 1.1 Creat Clearance w eGFR > 60 Random Glucose 125 H Lactic Acid Calcium 9.1 Total Bilirubin 1.7 H AST 14 L ALT 22 Alkaline Phosphatase 83 D Troponin I Total Protein 7.8 Albumin 3.8 Urine Color Urine Appearance Urine pH Ur Specific Collins Urine Protein Urine Glucose (UA) Urine Ketones Urine Blood Urine Nitrite Urine Bilirubin Urine Urobilinogen Ur Leukocyte Esterase Urine WBC (Auto) Urine RBC (Auto) Urine Bacteria 04/24/18 12:52 RBC 5.13 MCV 87.8 MCHC 34.4 RDW 13.1 MPV 8.8 Neutrophils % 87.5 H Lymphocytes % 4.0 L Monocytes % 8.3 Eosinophils % 0.0 Basophils % 0.2 - Medications Given in the ED: ED Medications Discontinued Medications Generic Name Dose Route Start Last Admin Trade Name Freq PRN Reason Stop Dose Admin Acetaminophen 1,000 mg 04/24/18 12:30 04/24/18 13:19 Ofirmev Injection - IVPB 04/24/18 12:31 1,000 mg ONCE ONE Administration Sodium Chloride 1,000 mls @ 1,000 mls/hr 04/24/18 12:28 04/24/18 13:19 Normal Saline - IV 04/24/18 13:27 1,000 mls/hr ASDIR STA Administration Piperacillin/Tazobactam/Dextrose 4.5 gm in 100 mls @ 200 mls/hr 04/24/18 13: 43 04/24/18 14:09 Zosyn 4.5gm Ivpb (Premix) IVPB 04/24/18 14:12 200 mls/hr ONCE ONE Administration Protocol Morphine Sulfate 2 mg 04/24/18 12:34 04/24/18 13:19 Morphine Sulfate IVPUSH 04/24/18 12:35 2 mg ONCE ONE Administration <Logan Fine - Last Filed: 04/24/18 14:14> - LABORATORY CBC & Chemistry Diagram: 04/24/18 12:52 04/24/18 12:52 - RADIOLOGY Radiology Studies Ordered: Category Date Time Status CHEST X-RAY PORTABLE* [RAD] Stat Radiology 04/24/18 12:28 Ordered <Michael Garcia - Last Filed: 04/24/18 14:56> Medical Decision Making - Critical Care Time Total Critical Care Time (minutes): 45 Critical Care Statement: The care of this patient involved high complexity decision making to prevent further life threatening deterioration of the patient 's condition and/or to evaluate & treat vital organ system(s) failure or risk of failure. - Medical Decision Making 04/24/18 12:57 77 M with fevers, chills, decreased appetite, and pain in his rectum w/ dysuria. Pt has known UTI, concerning for urosepsis as pt is tachycardic today. - Labs, cultures - UA, CXR - IVF, tylenol, morphine - Call pt's urologist in [place] - Likely admit 04/24/18 13:[address] Brady, covering for Dr. De Leon, who states that pt had a prostate US and biopsy yesterday. 04/24/18 13:43 Labs notable for leukocytosis of 17. UA with + LE, + nitrites. Pt afebrile but meets sepsis criteria. Will administer IVF, initiate zosyn. 04/24/18 14:[address] Michael Hernandez, discussed case. 04/24/18 14:[address] Wick <Michael Garcia - Last Filed: 04/24/18 14:56> *DC/Admit/Observation/Transfer - Attestations Scribe Attestion: 04/24/18 14:16 Documentation prepared by Logan Fine, acting as medical center director for Michael Garcia MD. <Logan Fine - Last Filed: 04/24/18 14:14> - Discharge Dispostion Decision to Admit order: Yes - Attestations Physician Attestion: 04/24/18 14:56 I, Dr. Michael Garcia MD, attest that this document has been prepared under my direction and personally reviewed by me in its entirety. I further attest, that it accurately reflects all work, treatment, procedures and medical decision -making performed by me. <Michael Garcia - Last Filed: 04/24/18 14:56> Diagnosis at time of Disposition: Sepsis, UTI (urinary tract infection), Urinary retention - Referrals Referrals: Michael Hernandez MD [Primary Care Provider] - - Patient Instructions - Post Discharge Activity
[2018-04-24 13:16] LABS: BASO % 0.2 % (0-2.0); HEMOGLOBIN 15.5 GM/dL (11.7-16.9); MCH 30.2 pg (25.7-33.7); MCHC 34.4 g/dl (32.0-35.9); MEAN CELL VOLUME 87.8 fl (80-96); MEAN PLT VOLUME 8.8 fl (7.5-11.1); MONO % 8.3 % (3.8-10.2); NEUT % 87.5 % (42.8-82.8); PLATELET COUNT 222 K/MM3 (134-434); RBC 5.13 M/mm3 (4.00-5.60); RDW 13.1 % (11.9-15.9); WHITE BLOOD COUNT 17.5 K/mm3 (4.0-10.0)
[2018-04-24 13:17] LABS: VENOUS PC02 27.2 mmHg (38-52); VENOUS PH 7.51 (7.32-7.42); VENOUS PO2 32.8 mmHg (28-48)
[2018-04-24 13:35] LABS: URINE APPEARANCE CLEAR; URINE BILIRUBIN NEGATIVE (<2.0 mg/dL); URINE GLUCOSE (UA) NEGATIVE (NEGATIVE); URINE KETONE TRACE (NEGATIVE); URINE NITRITE POSITIVE (NEGATIVE)
[2018-04-24 13:37] LABS: URINE LEUK ESTERASE 1+ (NEGATIVE); URINE PROTEIN 1+ (NEGATIVE)
[2018-04-24 13:38] LABS: INR 1.32 (0.82-1.09); PROTHROMBIN TIME (PATIENT) 14.9 SEC (9.7-13.0)
[2018-04-24 13:38] LABS: URINE COLOR DK YELLOW
[2018-04-24 13:41] LABS: ACTIVATED PTT 31.2 SECONDS (25.2-36.5)
[2018-04-24 13:43] LABS: URINE BACTERIA RARE /hpf (NONE SEEN)
[2018-04-24] MEDS ORDERED: PIPERACILLIN/TAZOB 4.5 GM 4.5 GM/100 ML BAG IVPB ONE ×2 (13:43→14:03)
[2018-04-24 13:57] LABS: ALBUMIN 3.8 g/dl (3.4-5.0); ALK PHOS 83 U/L (45-117); ANION GAP 13 (8-16); BILIRUBIN,TOTAL 1.7 mg/dL (0.2-1.0); BLOOD UREA NITROGEN 14 mg/dL (7-18); CALCIUM 9.1 mg/dL (8.5-10.1); CHLORIDE 98 mmol/L (98-107); CO2 22 mmol/L (21-32); CREATININE 1.1 mg/dL (0.7-1.3); GLUCOSE,RANDOM 125 mg/dL (74-106); POTASSIUM 3.4 mmol/L (3.5-5.1); SGOT/AST 14 U/L (15-37); SGPT/ALT 22 U/L (12-78); SODIUM 133 mmol/L (136-145); TOT PROT 7.8 g/dl (6.4-8.2)
[2018-04-24] MEDS ORDERED: morphine CARPU-JECT 4 MG/1 ML DISP.SYRIN IVPUSH ONE ×2 (14:50→16:25)
[2018-04-24] MEDS ORDERED: PHENAZOPYRIDINE HCL 100 MG TABLET (FP) PO ONE (15:48)
[2018-04-24] MEDS ORDERED: PHENAZOPYRIDINE HCL 100 MG TABLET (FP) ONE (15:50)
[2018-04-24] MEDS ORDERED: morphine SULFATE 4 MG/ML VIAL IVPUSH ONE (18:09)
[2018-04-24] MEDS ORDERED: morphine SULFATE 4 MG/ML VIAL ONE (18:45)
[2018-04-24 20:54] VITALS: BMI 23.8
[2018-04-24] MEDS: MORPHINE SULFATE 2 MG/ML VIAL IVPUSH PRN (21:05)
[2018-04-24] MEDS ORDERED: PIPERACILLIN/TAZOBACTAM 3.375 GM VIAL IVPB ONE (23:01)
[2018-04-24] MEDS ORDERED: DEXTROSE 5%-WATER - 50 ML IVPB ONE (23:01)
[2018-04-24] MEDS: D5-1/2NS+20 MEQ KCL - 20 MEQ/1,000 ML INFUS.BAG IV SCH (23:04)
[2018-04-24] MEDS: PIPERACILLIN/TAZOB 3.375 GM 3.375 GM in DEXTROSE 5%-WATER - 50 ML IVPB SCH (23:05)
[2018-04-24] MEDS: HEPARIN NA (PORCINE) 5,000 UNITS/ML 1ML VIAL SQ SCH (23:14)
[2018-04-25] MEDS: MORPHINE SULFATE 2 MG/ML VIAL IVPUSH PRN ×5 (00:51→20:37)
[2018-04-25] MEDS: MELATONIN 5 MG TABLETS PO PRN ×2 (00:51→21:23)
[2018-04-25] MEDS ORDERED: LIDOCAINE HCL 2% JELLY (30 ML/TUBE) TP ONE (05:30)
[2018-04-25] MEDS ORDERED: PIPERACILLIN/TAZOBACTAM 3.375 GM VIAL IVPB ONE ×2 (05:33→15:16)
[2018-04-25] MEDS ORDERED: DEXTROSE 5%-WATER - 50 ML IVPB ONE ×2 (05:33→15:16)
[2018-04-25] MEDS: PIPERACILLIN/TAZOB 3.375 GM 3.375 GM in DEXTROSE 5%-WATER - 50 ML IVPB SCH ×2 (05:36→15:20)
[2018-04-25] MEDS ORDERED: PT OWN MED DRAWER 7, Y5N ONE ×3 (07:08→21:14)
[2018-04-25 07:34] LABS: BASO % 0.6 % (0-2.0); EOS % 0.3 % (0-4.5); HEMATOCRIT 37.4 % (35.4-49); HEMOGLOBIN 13.1 GM/dL (11.7-16.9); LYMPH % 10.1 % (8-40); MCH 30.9 pg (25.7-33.7); MCHC 34.9 g/dl (32.0-35.9); MEAN CELL VOLUME 88.4 fl (80-96); MEAN PLT VOLUME 8.5 fl (7.5-11.1); MONO % 9.4 % (3.8-10.2); NEUT % 79.6 % (42.8-82.8); PLATELET COUNT 180 K/MM3 (134-434); RBC 4.23 M/mm3 (4.00-5.60); RDW 12.8 % (11.9-15.9); WHITE BLOOD COUNT 10.7 K/mm3 (4.0-10.0)
[2018-04-25 08:18] LABS: BLOOD UREA NITROGEN 12 mg/dL (7-18); CALCIUM 8.5 mg/dL (8.5-10.1); CHLORIDE 104 mmol/L (98-107); GLUCOSE,RANDOM 113 mg/dL (74-106); POTASSIUM 4.2 mmol/L (3.5-5.1); SODIUM 138 mmol/L (136-145)
--- NOTE | 2018-04-25 08:21 | HP ---
Admitting History and Physical - Admission History of Present Illness: 77 year old male with a significant PMH of hernia surgery on 04/01 c/b urinary retention s/p bustillo placement, recent UTI, [place] (s/p stents, on Plavix), HTN, and hyperlipidemia who presents to the emergency department with suprapubic pain, rectal burning, fevers, chills, and decreased appetite x2 days. The patients son states the patient has had a bustillo since 04/01 for urinary retention. He has failed multiple trials of void since then. Yesterday, pt was evaluated by his urologist and had a procedure done on his prostate. Pt subsequently developed severe rectal pain. Denies BRBPR or dark tarry stools. Pt was evaluated at [place] ED yesterday for this pain and was diagnosed with UTI. Pt was started on levaquin and pyridium, but patient presents today with persistent dysuria and rectal burning as well as subjective fevers, chills, and decreased appetite. - Past Medical History Cardiovascular: Yes: HTN Renal/: Yes: BPH, UTI - Past Surgical History Past Surgical History: Yes: Hernia Repair - Smoking History Smoking history: Never smoked Have you smoked in the past 12 months: No - Alcohol/Substance Use Hx Alcohol Use: No Home Medications - Allergies Allergies/Adverse Reactions: Allergies Allergy/AdvReac Type Severity Reaction Status Date / Time No Known Allergies Allergy Verified 04/24/18 12:04 - Home Medications Home Medications: Ambulatory Orders Clopidogrel Bisulfate [Plavix -] 75 mg PO DAILY 01/31/14 Simvastatin 20 mg PO DAILY 03/30/18 Aspirin [Aspirin EC] 81 mg PO DAILY 04/01/18 Oxycodone HCl/Acetaminophen [Percocet 5-325 mg Tablet] 1 tab PO Q4H PRN #20 tablet MDD 6 04/01/18 Silodosin [Rapaflo] 8 mg PO DAILY 04/01/18 Review of Systems - Review of Systems Cardiovascular: denies: Chest Pain Respiratory: denies: SOB Genitourinary: reports: Dysuria, Pain, Other (BUSTILLO) Neurological: reports: No Symptoms Physical Examination Vital Signs: Vital Signs Temperature 98.5 F 04/25/18 06:00 Pulse Rate 78 04/25/18 06:00 Respiratory Rate 18 04/25/18 06:00 Blood Pressure 129/66 04/25/18 06:00 O2 Sat by Pulse Oximetry (%) 100 04/24/18 21:00 Cardiovascular: Yes: S1, S2 Respiratory: Yes: Regular, CTA Bilaterally Gastrointestinal: Yes: Normal Bowel Sounds, Soft Renal/: Yes: Bustillo Present Labs: CBC, BMP 04/25/18 06:00 Problem List - Problems (1) UTI (urinary tract infection) Assessment/Plan: -IV ABX -UROLOGY Code(s): N39.0 - URINARY TRACT INFECTION, SITE NOT SPECIFIED (2) Urinary retention Assessment/Plan: -BUSTILLO -UROLGY Code(s): R33.9 - RETENTION OF URINE, UNSPECIFIED (3) HTN (hypertension) Assessment/Plan: -MONITOR Code(s): I10 - ESSENTIAL (PRIMARY) HYPERTENSION
[2018-04-25 08:27] LABS: ALK PHOS 61 U/L (45-117); ANION GAP 6 (8-16); BILIRUBIN,TOTAL 0.7 mg/dL (0.2-1.0); CO2 28 mmol/L (21-32); SGOT/AST 8 U/L (15-37); SGPT/ALT 16 U/L (12-78); TOT PROT 6.2 g/dl (6.4-8.2)
[2018-04-25] MEDS: TAMSULOSIN HCL 0.4 MG CAP.ER.24H (FP) PO SCH (08:27)
[2018-04-25] MEDS: ASPIRIN COATED 81 MG TABLET.EC PO SCH (09:42)
[2018-04-25] MEDS: HEPARIN NA (PORCINE) 5,000 UNITS/ML 1ML VIAL SQ SCH ×2 (09:42→21:20)
[2018-04-25] MEDS: CLOPIDOGREL BISULFATE 75 MG TABLET (FP) PO SCH (09:42)
[2018-04-25] MEDS: ACETAMINOPHEN 325 MG TABLET (FP) PO PRN ×2 (09:49→21:26)
[2018-04-25] MEDS: D5-1/2NS+20 MEQ KCL - 20 MEQ/1,000 ML INFUS.BAG IV SCH (15:20)
[2018-04-25] MEDS: ATORVASTATIN CA 10 MG TABLET (FP) PO SCH (21:24)
[2018-04-26] MEDS: LIDOCAINE HCL 2% JELLY (5 ML/TUBE) TP PRN ×2 (02:13→10:34)
[2018-04-26] MEDS ORDERED: POLYETHYLENE GLYCOL 3350 119 GM BTL PO ONE (03:39)
[2018-04-26] MEDS ORDERED: DOCUSATE SODIUM 100 MG CAPSULE (FP) PO PRN (03:39)
[2018-04-26] MEDS: D5-1/2NS+20 MEQ KCL - 20 MEQ/1,000 ML INFUS.BAG IV SCH ×3 (04:04→22:19)
[2018-04-26] MEDS: MORPHINE SULFATE 2 MG/ML VIAL IVPUSH PRN ×3 (06:47→20:21)
[2018-04-26] MEDS: TAMSULOSIN HCL 0.4 MG CAP.ER.24H (FP) PO SCH (09:47)
[2018-04-26] MEDS: CLOPIDOGREL BISULFATE 75 MG TABLET (FP) PO SCH (09:47)
[2018-04-26] MEDS: HEPARIN NA (PORCINE) 5,000 UNITS/ML 1ML VIAL SQ SCH ×2 (09:48→22:19)
[2018-04-26] MEDS: ASPIRIN COATED 81 MG TABLET.EC PO SCH (09:48)
[2018-04-26] MEDS: ACETAMINOPHEN 325 MG TABLET (FP) PO PRN (09:57)
--- NOTE | 2018-04-26 10:26 | PN ---
Progress Note (short form) - Note Progress Note: ID consult dictated imlp/reccd partially treated UTI prostatitis urinary retention BPH recent bilateral hernia repain continue zosyn get urine culture results from [facility]- seen in ED there on Thursday await urology consultation Problem List - Problems (1) UTI (urinary tract infection) Code(s): N39.0 - URINARY TRACT INFECTION, SITE NOT SPECIFIED (2) Prostatitis Code(s): N41.9 - INFLAMMATORY DISEASE OF PROSTATE, UNSPECIFIED (3) Urinary retention Code(s): R33.9 - RETENTION OF URINE, UNSPECIFIED
[2018-04-26] MEDS ORDERED: DEXTROSE 5%-WATER - 50 ML IVPB ONE ×3 (10:35→23:58)
[2018-04-26] MEDS ORDERED: PIPERACILLIN/TAZOBACTAM 3.375 GM VIAL IVPB ONE ×3 (10:35→23:58)
[2018-04-26] MEDS: PIPERACILLIN/TAZOB 3.375 GM 3.375 GM in DEXTROSE 5%-WATER - 50 ML IVPB SCH ×2 (10:36→17:34)
--- NOTE | 2018-04-26 12:08 | CONS ---
DATE OF CONSULTATION: DATE OF DICTATION: 04/26/2018 HISTORY: This is a 77-year-old man with past medical history of recent bilateral laparoscopic inguinal hernia repair April 01. Since that time, he has been having problems with urinary tract. He came to the emergency room on the to have a Marrero placed. It was removed in the urologist's office on the . He returned again on the to have the Marrero replaced as he had recurrent urinary retention. He reports he has had the Marrero replaced he thinks 5 or 6 times since then. This he was seen by a urologist. He saw a Dr. Devyn De Leon in [place] on . At that time, he reports he had a rectal exam that was extremely painful. The next morning he had severe burning on urination as well as rectal pain. He went to the urologist's office, but he was, unfortunately, in surgery. He was evaluated at the emergency room and was diagnosed with a urinary tract infection. According to the patient, he was given Levaquin and Pyridium. That was on Thursday. On Thursday, he presented to the emergency room at [facility] with continued pain, subjective fevers and chills at home, though he did not take his temperature. He continues to report he has rectal pain inside his rectum, not outside, and states he still has discontinue on urination. In the emergency room on evaluation, he had no fever, but his white count was 17,000. He had cultures sent, and he was sent on piperacillin and tazobactam. PAST MEDICAL HISTORY: Notable for history of coronary artery disease, hypertension, hypercholesterolemia. He denies diabetes. PAST SURGICAL HISTORY: He has had stents and the recent bilateral laparoscopic hernia repair. SOCIAL HISTORY: He is originally from [place]. There is no history of any cigarette or substance use. He drinks alcohol occasionally. There is no cigarette use. His PCP is Dr. Hernandez. ALLERGIES: He has no known drug allergies. MEDICATIONS: At home include Plavix, simvastatin, aspirin, Percocet, Rapaflo, and he was started on Pyridium and Levaquin on Thursday in the emergency room at [place]. REVIEW OF SYSTEMS: He denies nausea or vomiting. He denies diarrhea. He has had subjective fevers. PHYSICAL EXAMINATION: Vital Signs: T-max in the hospital has been 100.4, current temperature 98.5, pulse 77, blood pressure 113/68, respiratory rate is 20. General: The patient reports his Marrero was changed in the ER at [facility]. HEENT: He is normocephalic. His eyes are anicteric. Neck: Supple. Lungs: Clear to auscultation. Heart: Regular rate and rhythm. Abdomen: Soft. He has some suprapubic discomfort, which he reports is secondary to his hernia repair. He has currently no CVA tenderness. Genitourinary: He has no scrotal or perineal swelling. Rectal: I do not do a rectal exam. LABORATORY DATA: His white count on admission was 17.5, today is 10.7, hemoglobin 13.1, platelets 180. BUN 12, creatinine 1. His urinalysis had 3+ blood, 1+ leukocyte esterase with 12 white cells. His cultures have been sent and are no growth to date. Renal and pelvic ultrasound are notable for no hydronephrosis, and he has a Marrero catheter and a moderately enlarged prostate. In summary, this is a 77-year-old man with: 1. Recurrent urinary retention who has had a Marrero several times this past month now with symptoms of rectal pain after rectal exam as well as penile pain. His UA is consistent with UTI. I suspect he has been partially treated. As well, there is concern for prostatitis given his description of severe pain after the rectal exam. We are awaiting urology exam. I deferred rectal exam to the urologist. Would continue piperacillin and tazobactam for now. We will discuss with the urologist if there are indeed urine culture results perhaps from [place] that we could obtain to help us guide his antibiotic treatment. 2. He is status post recent bilateral inguinal hernia repair. 3. History of coronary artery disease. DESTINEY VELASQUEZ M.D. [id number]
--- NOTE | 2018-04-26 12:21 | PN ---
Progress Note, Physician Chief Complaint: Rectal pain UTI Urinary retention History of Present Illness: NAD, Family at bedside seen by ID on IV abx [facility] UC showed Klebsiella - Current Medication List Current Medications: Active Medications Acetaminophen (Tylenol -) 650 mg PO Q4H PRN PRN Reason: FEVER Last Admin: 04/26/18 09:57 Dose: 650 mg Aspirin (Ecotrin -) 81 mg PO DAILY [facility] Last Admin: 04/26/18 09:48 Dose: 81 mg Atorvastatin Calcium (Lipitor -) 10 mg PO HS [facility] Last Admin: 04/25/18 21:24 Dose: 10 mg Clopidogrel Bisulfate (Plavix -) 75 mg PO DAILY [facility] Last Admin: 04/26/18 09:47 Dose: 75 mg Docusate Sodium (Colace -) 100 mg PO BID PRN PRN Reason: CONSTIPATION Heparin Sodium (Porcine) (Heparin -) 5,000 unit SQ BID [facility] Last Admin: 04/26/18 09:48 Dose: 5,000 unit Potassium Chloride/Dextrose/Sod Cl (D5-1/2ns+20 Meq Kcl -) 20 meq in 1,000 mls @ 75 mls/hr IV ASDIR [facility] Last Admin: 04/26/18 04:04 Dose: 75 mls/hr Piperacillin Sod/Tazobactam (Sod 3.375 gm/ Dextrose) 50 mls @ 100 mls/hr IVPB Q8H-IV WILY; Protocol Last Admin: 04/26/18 10:36 Dose: 100 mls/hr Lidocaine HCl (Xylocaine 2% Jelly) 1 applic TP QID PRN PRN Reason: PAIN LEVEL 4 - 6 Last Admin: 04/26/18 10:34 Dose: 1 applic Melatonin (Melatonin) 5 mg PO HS PRN PRN Reason: INSOMNIA Last Admin: 04/25/18 21:23 Dose: 5 mg Morphine Sulfate (Morphine Sulfate) 2 mg IVPUSH Q4H PRN PRN Reason: PAIN LEVEL 6-10 Last Admin: 04/26/18 10:34 Dose: 2 mg Tamsulosin HCl (Flomax -) 0.4 mg PO DAILY@0830 [facility] Last Admin: 04/26/18 09:47 Dose: 0.4 mg - Objective Vital Signs: Vital Signs Temperature 98.5 F 04/26/18 05:56 Pulse Rate 77 04/26/18 05:56 Respiratory Rate 20 04/26/18 05:56 Blood Pressure 113/68 04/26/18 05:56 O2 Sat by Pulse Oximetry (%) 96 04/25/18 21:00 Constitutional: Yes: Well Nourished, No Distress, Calm Cardiovascular: Yes: Regular Rate and Rhythm Respiratory: Yes: Regular Gastrointestinal: Yes: Normal Bowel Sounds, Soft Musculoskeletal: Yes: WNL Extremities: Yes: WNL Edema: No Neurological: Yes: Alert, Oriented Psychiatric: Yes: Alert, Oriented Labs: CBC, BMP 04/25/18 06:00 04/25/18 06:00 INR, PTT INR 1.32 (0.82-1.09) H 04/24/18 12:52 Problem List - Problems (1) Prostatitis Code(s): N41.9 - INFLAMMATORY DISEASE OF PROSTATE, UNSPECIFIED (2) UTI (urinary tract infection) Code(s): N39.0 - URINARY TRACT INFECTION, SITE NOT SPECIFIED (3) Urinary retention Code(s): R33.9 - RETENTION OF URINE, UNSPECIFIED
--- NOTE | 2018-04-26 13:12 | CON.GU ---
Consult Consult Specialty:: Referred by:: Shamika Reason for Consultation:: 77 year old male with a significant PMH of hernia surgery on 04/01 c/b urinary retention s/p bustillo placement, recent UTI, [place] (s/p stents, on Plavix), HTN, and hyperlipidemia who presents to the emergency department with suprapubic pain, rectal burning, fevers, chills, and decreased appetite x2 days. The patients son states the patient has had a bustillo since for urinary retention. He has failed multiple trials of void since then. Yesterday, pt was evaluated by his urologist and had a procedure done on his prostate. Pt subsequently developed severe rectal pain. Denies BRBPR or dark tarry stools. Pt was evaluated at [place] ED yesterday for this pain and was diagnosed with UTI. Pt was started on levaquin and pyridium, but patient presents today with persistent dysuria and rectal burning as well as subjective fevers, chills, and decreased appetite. - History Source History Provided By: Patient, Medical Record - Past Medical History Cardio/Vascular: Yes: HTN Renal/: Yes: BPH, UTI - Past Surgical History Past Surgical History: Yes: Hernia Repair - Alcohol/Substance Use Hx Alcohol Use: No - Smoking History Smoking history: Never smoked Have you smoked in the past 12 months: No Home Medications - Allergies Allergies/Adverse Reactions: Allergies Allergy/AdvReac Type Severity Reaction Status Date / Time No Known Allergies Allergy Verified 04/24/18 12:04 - Home Medications Home Medications: Ambulatory Orders Clopidogrel Bisulfate [Plavix -] 75 mg PO DAILY 01/31/14 Simvastatin 20 mg PO DAILY 03/30/18 Aspirin [Aspirin EC] 81 mg PO DAILY 04/01/18 Oxycodone HCl/Acetaminophen [Percocet 5-325 mg Tablet] 1 tab PO Q4H PRN #20 tablet MDD 6 04/01/18 Silodosin [Rapaflo] 8 mg PO DAILY 04/01/18 Review of Systems - Review of Systems Gastrointestinal: reports: Other (rectal pain) Physical Exam- Vital Signs: Vital Signs Temperature 98.5 F 04/26/18 05:56 Pulse Rate 77 04/26/18 05:56 Respiratory Rate 20 04/26/18 05:56 Blood Pressure 113/68 04/26/18 05:56 O2 Sat by Pulse Oximetry (%) 96 04/25/18 21:00 Renal/: Yes: Bustillo Present Labs: CBC, BMP 04/25/18 06:00 04/25/18 06:00 Problem List - Problems (1) Prostatitis Code(s): N41.9 - INFLAMMATORY DISEASE OF PROSTATE, UNSPECIFIED (2) UTI (urinary tract infection) Assessment/Plan: cont abxs Code(s): N39.0 - URINARY TRACT INFECTION, SITE NOT SPECIFIED (3) Urinary retention Assessment/Plan: cont bustillo, f/u w pmd for ? Turp Code(s): R33.9 - RETENTION OF URINE, UNSPECIFIED (4) BPH (benign prostatic hyperplasia) Code(s): N40.0 - BENIGN PROSTATIC HYPERPLASIA WITHOUT LOWER URINRY TRACT SYMP Qualifiers: Lower urinary tract symptom presence: symptoms present Lower urinary tract symptom detail: urinary obstruction Qualified Code(s): N40.1 - Benign prostatic hyperplasia with lower urinary tract symptoms; N13.8 - Other obstructive and reflux uropathy
[2018-04-26] MEDS ORDERED: PT OWN MED DRAWER 7, Y5N ONE (20:13)
--- NOTE | 2018-04-26 21:52 | EKG ---
Test Reason : Blood Pressure : / mmHG Vent. Rate : 079 BPM Atrial Rate : 079 BPM P-R Int : 154 ms QRS Dur : 086 ms QT Int : 398 ms P-R-T Axes : 030 -20 015 degrees QTc Int : 456 ms NORMAL SINUS RHYTHM INFERIOR INFARCT , AGE UNDETERMINED ANTERIOR INFARCT , AGE UNDETERMINED ABNORMAL ECG WHEN COMPARED WITH ECG OF 28-AUG-2016 19:06, T WAVE VARIATION Confirmed by COLE CÁRDENAS MD ([id number]) on 04/26/2018 9:52:20 PM Referred By: Confirmed By:COLE CÁRDENAS MD
[2018-04-26] MEDS: ATORVASTATIN CA 10 MG TABLET (FP) PO SCH (22:19)
[2018-04-26] MEDS: MELATONIN 5 MG TABLETS PO PRN (22:19)
[2018-04-27] MEDS: PIPERACILLIN/TAZOB 3.375 GM 3.375 GM in DEXTROSE 5%-WATER - 50 ML IVPB SCH ×2 (00:58→09:18)
[2018-04-27] MEDS: MORPHINE SULFATE 2 MG/ML VIAL IVPUSH PRN (02:15)
[2018-04-27] MEDS: LIDOCAINE HCL 2% JELLY (5 ML/TUBE) TP PRN (06:14)
--- NOTE | 2018-04-27 07:44 | DS ---
Physical Examination Vital Signs: Vital Signs Temperature 98.4 F 04/27/18 05:46 Pulse Rate 71 04/27/18 05:46 Respiratory Rate 20 04/27/18 05:46 Blood Pressure 136/73 04/27/18 05:46 O2 Sat by Pulse Oximetry (%) 96 04/26/18 20:02 Findings/Remarks: 77 year old male with a significant PMH of hernia surgery on 04/01 c/b urinary retention s/p hahn placement, recent UTI, HI (s/p stents, on Plavix), HTN, and hyperlipidemia who presents to the emergency department with suprapubic pain, rectal burning, fevers, chills, and decreased appetite x2 days. The patients son states the patient has had a hahn since 04/01 for urinary retention. He has failed multiple trials of void since then. Yesterday, pt was evaluated by his urologist and had a procedure done on his prostate. Pt subsequently developed severe rectal pain. Denies BRBPR or dark tarry stools. Pt was evaluated at [facility] [facility] yesterday for this pain and was diagnosed with UTI. Pt was started on levaquin and pyridium, but patient presents today with persistent dysuria and rectal burning as well as subjective fevers, chills, and decreased appetite. - Past Medical History Cardiovascular: Yes: HTN Renal/: Yes: BPH, UTI - Past Surgical History Past Surgical History: Yes: Hernia Repair Cardiovascular: Yes: Regular Rate and Rhythm Respiratory: Yes: Regular, CTA Bilaterally Gastrointestinal: Yes: Normal Bowel Sounds, Soft Renal/: Yes: Hahn Present Labs: CBC, BMP 04/25/18 06:00 04/25/18 06:00 Discharge Summary Reason For Visit: SEPSIS Current Active Problems HTN (hypertension) (Acute) Prostatitis (Acute) Sepsis (Acute) UTI (urinary tract infection) (Acute) Urinary retention (Acute) Urinary retention (Acute) Hospital Course: - Problems (1) UTI (urinary tract infection) Assessment/Plan: -IV ABX--D/W ID URINCE CULTURE FROM [facility]--PANSENSITIVE--CONTINUE WITH LEVAQUIN -UROLOGY FOLLOW UP PRIOR TO PROCEDURE TO DETERMINE DURATION--QUESTION OF PROSTATITIS -US NOTED AND DISCUSSED WITH PT -ABOVE D/W SON Code(s): N39.0 - URINARY TRACT INFECTION, SITE NOT SPECIFIED (2) Urinary retention Assessment/Plan: -HAHN PER UROLOGY -UROLGY Code(s): R33.9 - RETENTION OF URINE, UNSPECIFIED (3) HTN (hypertension) Assessment/Plan: -MONITOR Code(s): I10 - ESSENTIAL (PRIMARY) HYPERTENSION Condition: Improved - Instructions Diet, Activity, Other Instructions: Follow up with urologist Continue with antibiotics and complete course before procedure Any question call Dr Wick [phone] Referrals: Michael Hernandez MD [Primary Care Provider] - 1 Week Disposition: HOME - Home Medications Comprehensive Discharge Medication List: Ambulatory Orders Clopidogrel Bisulfate [Plavix -] 75 mg PO DAILY 01/31/14 Simvastatin 20 mg PO DAILY 03/30/18 Aspirin [Aspirin EC] 81 mg PO DAILY 04/01/18 Oxycodone HCl/Acetaminophen [Percocet 5-325 mg Tablet] 1 tab PO Q4H PRN #20 tablet MDD 6 04/01/18 Silodosin [Rapaflo] 8 mg PO DAILY 04/01/18 Docusate Sodium [Colace -] 100 mg PO BID PRN capsule 04/27/18 Melatonin 5 mg PO HS PRN tab 04/27/18 Tamsulosin HCl [Flomax -] 0.4 mg PO DAILY@0830 cap.er.24h 04/27/18
[2018-04-27] MEDS ORDERED: PIPERACILLIN/TAZOBACTAM 3.375 GM VIAL IVPB ONE (08:53)
[2018-04-27] MEDS ORDERED: DEXTROSE 5%-WATER - 50 ML IVPB ONE (08:54)
[2018-04-27] MEDS: TAMSULOSIN HCL 0.4 MG CAP.ER.24H (FP) PO SCH (08:57)
[2018-04-27] MEDS: CLOPIDOGREL BISULFATE 75 MG TABLET (FP) PO SCH (09:18)
[2018-04-27] MEDS: HEPARIN NA (PORCINE) 5,000 UNITS/ML 1ML VIAL SQ SCH (09:19)
[2018-04-27] MEDS: ASPIRIN COATED 81 MG TABLET.EC PO SCH (09:19)
[2018-04-27 09:51] VITALS: BP 153/77; PULSE 83; TEMP 98
--- NOTE | 2018-04-27 09:59 | PN ---
Progress Note (short form) - Note Progress Note: feels the same no fevers still with penile discomfort +BM +bustillo Vital Signs Period Temp Pulse Resp BP Sys/Wolfe Pulse Ox Last 24 Hr 98 F-98.7 F 71-76 18-20 136-156/71-80 96 cor-rrr lungs clear abd soft,nt ext no edema CBC, BMP 04/25/18 06:00 04/25/18 06:00 Microbiology 04/24/18 12:52 Blood - Peripheral Venous Blood Culture - Preliminary NO GROWTH OBTAINED AFTER 48 HOURS, INCUBATION TO CONTINUE FOR 3 DAYS. 04/24/18 12:52 Blood - Peripheral Venous Blood Culture - Preliminary NO GROWTH OBTAINED AFTER 48 HOURS, INCUBATION TO CONTINUE FOR 3 DAYS. 04/24/18 13:13 Urine - Urine Bustillo Urine Culture - Final NO GROWTH OBTAINED labs from [facility] reviewed wbc 14.5, UA with greater then 100 WBC, urine culture Klebsiella pneumonia pansensitive sensitive to Levaquin a/p partially treated UTI prostatitis urinary retention BPH recent bilateral hernia repair can switch to po levaquin-500 mg daily duration should be determined in conjunction with urology at least 3 weeks perhaps longer should f/u with PMD should f/u with urology d/w Dr Wick he will d/w urology d/w patient his his son and the covering [employer] overall 30 minutes minimum spent in the care of this patient Problem List - Problems (1) UTI (urinary tract infection) Code(s): N39.0 - URINARY TRACT INFECTION, SITE NOT SPECIFIED (2) Prostatitis Code(s): N41.9 - INFLAMMATORY DISEASE OF PROSTATE, UNSPECIFIED (3) Urinary retention Code(s): R33.9 - RETENTION OF URINE, UNSPECIFIED
== END 2018-04-27 12:11 | disposition home or self-care (01) | DRG 690 ==
LOC: JER 11:59 → JERBED 14:56 → J7W 20:00
PROVIDERS: ADMIT Family Medicine; ATTEND Family Medicine
DX: N39.0 Urinary tract infection, site not specified (principal); I10 Essential (primary) hypertension; I25.2 Old myocardial infarction; E78.5 Hyperlipidemia, unspecified; N40.1 Benign prostatic hyperplasia with lower urinary tract symptoms; R33.8 Other retention of urine; N41.9 Inflammatory disease of prostate, unspecified
CPT/HCPCS: 36415; 71045-TC-FY; 76775-TC; 76856-TC; 80053; 81003; 81015; 82803; 82962; 83605; 84484; 85025; 85610; 85730; 87040; 87086; 93005; 93010; 99285-25; J0131; J1644; J7030

== ENCOUNTER 2021-08-26 09:02 | Inpatient (IN) | payer OTHER ==
[2021-08-26 09:10] VITALS: BMI 24.7
[2021-08-26] MEDS ORDERED: SODIUM CHLORIDE 1,000 ML IV SCH (09:15)
[2021-08-26] MEDS ORDERED: ASPIRIN 81 MG CHEWABLE TABLETS PO ONE (09:47)
[2021-08-26] MEDS ORDERED: ATORVASTATIN CA 80 MG TABLET (FP) PO ONE (09:47)
[2021-08-26 10:06] LABS: BASO % 1.4 % (0-2.0); EOS % 1.4 % (0-4.5); HEMATOCRIT 41.4 % (35.4-49); HEMOGLOBIN 14.5 GM/dL (11.7-16.9); LYMPH % 17.1 % (8-40); MCH 31.1 pg (25.7-33.7); MCHC 34.9 g/dl (32.0-35.9); MEAN CELL VOLUME 88.9 fl (80-96); MEAN PLT VOLUME 8.4 fl (7.5-11.1); NEUT % 73.1 % (42.8-82.8); PLATELET COUNT 149 10^3/uL (134-434); RBC 4.66 M/mm3 (4.00-5.60); RDW 12.9 % (11.9-15.9); WHITE BLOOD COUNT 6.3 K/mm3 (4.0-10.0)
[2021-08-26] MEDS ORDERED: ASPIRIN 81 MG CHEWABLE TABLETS ONE (10:10)
[2021-08-26 10:12] LABS: INR 1.04 (0.83-1.09); PROTHROMBIN TIME (PATIENT) 11.6 SEC (9.7-13.0)
[2021-08-26] MEDS ORDERED: ATORVASTATIN CA 80 MG TABLET (FP) ONE (10:12)
[2021-08-26 10:14] LABS: ACTIVATED PTT 27.5 SECONDS (25.2-36.5)
[2021-08-26 10:22] LABS: CHLORIDE 104 mmol/L (98-107); SODIUM 138 mmol/L (136-145)
[2021-08-26 10:25] LABS: ALBUMIN 3.9 g/dl (3.4-5.0); ANION GAP 9 MMOL/L (8-16); BLOOD UREA NITROGEN 21.4 mg/dL (7-18); CALCIUM 9.2 mg/dL (8.5-10.1); CO2 24 mmol/L (21-32); GLUCOSE,RANDOM 137 mg/dL (74-106)
[2021-08-26 10:28] LABS: CHOLESTEROL 126 mg/dL (50-200); CREATININE 1.1 mg/dL (0.55-1.3); SGOT/AST 22 U/L (15-37); SGPT/ALT 24 U/L (13-61)
[2021-08-26 10:29] LABS: BILIRUBIN,TOTAL 0.7 mg/dL (0.2-1); LDL CHOLESTEROL (ONLY SJRH) 57 mg/dL (5-100); TRIGLYCERIDES 126 mg/dL (0-150)
[2021-08-26 10:30] LABS: TOT PROT 7.4 g/dl (6.4-8.2)
[2021-08-26 10:31] LABS: ALK PHOS 53 U/L (45-117); HDL CHOLESTEROL 50 mg/dL (40-60)
[2021-08-26] MEDS ORDERED: DOCUSATE SODIUM 100 MG CAPSULE (FP) PO PRN (14:18)
[2021-08-26] MEDS ORDERED: ATORVASTATIN CA 10 MG TABLET (FP) PO SCH (22:00)
[2021-08-26] MEDS: HEPARIN NA (PORCINE) 5,000 UNITS/ML 1ML VIAL SQ SCH (22:05)
[2021-08-26] MEDS: ATORVASTATIN CA 80 MG TABLET (FP) PO SCH (22:06)
[2021-08-27] MEDS ORDERED: TAMSULOSIN HCL 0.4 MG CAP PO ONE (00:07)
[2021-08-27 01:19] LABS: URINE APPEARANCE CLEAR; URINE BILIRUBIN NEGATIVE (NEGATIVE); URINE COLOR YELLOW; URINE GLUCOSE (UA) NEGATIVE (NEGATIVE); URINE KETONE NEGATIVE (NEGATIVE); URINE LEUK ESTERASE NEGATIVE (NEGATIVE); URINE NITRITE NEGATIVE (NEGATIVE); URINE PROTEIN NEGATIVE (NEGATIVE); URINE UROBILINOGEN 0.2 mg/dL (0.2-1.0)
[2021-08-27 07:41] LABS: CHLORIDE 105 mmol/L (98-107); SODIUM 138 mmol/L (136-145)
[2021-08-27 07:44] LABS: EOS % 1.3 % (0-4.5); HEMATOCRIT 41.3 % (35.4-49); HEMOGLOBIN 14.6 GM/dL (11.7-16.9); LYMPH % 22.9 % (8-40); MCH 31.6 pg (25.7-33.7); MCHC 35.5 g/dl (32.0-35.9); MEAN PLT VOLUME 8.9 fl (7.5-11.1); MONO % 7.5 % (3.8-10.2); NEUT % 67.3 % (42.8-82.8); PLATELET COUNT 190 10^3/uL (134-434); RBC 4.64 M/mm3 (4.00-5.60); RDW 12.9 % (11.9-15.9); WHITE BLOOD COUNT 6.3 K/mm3 (4.0-10.0)
[2021-08-27 08:02] LABS: CALCIUM 9.4 mg/dL (8.5-10.1)
[2021-08-27 08:03] LABS: ANION GAP 11 MMOL/L (8-16); BLOOD UREA NITROGEN 17.7 mg/dL (7-18); CO2 22 mmol/L (21-32); GLUCOSE,RANDOM 121 mg/dL (74-106); MAGNESIUM 2.3 mg/dL (1.8-2.4)
[2021-08-27 08:06] LABS: SGOT/AST 17 U/L (15-37); SGPT/ALT 21 U/L (13-61)
[2021-08-27 08:08] LABS: TOT PROT 7.4 g/dl (6.4-8.2)
[2021-08-27 08:09] LABS: ALK PHOS 58 U/L (45-117)
[2021-08-27 08:10] LABS: BILIRUBIN,TOTAL 1.3 mg/dL (0.2-1)
[2021-08-27] MEDS: TAMSULOSIN HCL 0.4 MG CAP PO SCH (09:35)
[2021-08-27] MEDS: HEPARIN NA (PORCINE) 5,000 UNITS/ML 1ML VIAL SQ SCH ×2 (09:35→23:20)
[2021-08-27] MEDS ORDERED: PATIENT'S OWN MEDICATION (NON-FORMULARY) (Silodosin [Rapaflo] 8 MG Capsule) PO SCH (10:00)
[2021-08-27] MEDS ORDERED: metoPROLOL SUCCINATE 25 MG TAB.SR.24H (FP) PO SCH (10:00)
[2021-08-27] MEDS ORDERED: CLOPIDOGREL BISULFATE 75 MG TABLET (FP) PO SCH (10:00)
[2021-08-27] MEDS ORDERED: ASPIRIN COATED 81 MG TABLET.EC PO SCH (10:00)
[2021-08-27] MEDS ORDERED: ACETAMINOPHEN 1000 MG/100 ML VIAL IVPB PRN (14:14)
[2021-08-27] MEDS ORDERED: MELATONIN 5 MG TABLETS PO PRN (14:15)
[2021-08-27] MEDS ORDERED: LORazepam 1 MG TABLET PO ONE (19:30)
[2021-08-27] MEDS: ATORVASTATIN CA 80 MG TABLET (FP) PO SCH (23:20)
[2021-08-28] MEDS: TAMSULOSIN HCL 0.4 MG CAP PO SCH (08:18)
[2021-08-28] MEDS: metoPROLOL SUCCINATE 25 MG TAB.SR.24H (FP) PO SCH (09:50)
[2021-08-28] MEDS: ASPIRIN/DIPYRIDAMOLE 25 MG/200 MG CAPSULE PO SCH ×2 (09:51→21:46)
[2021-08-28] MEDS: HEPARIN NA (PORCINE) 5,000 UNITS/ML 1ML VIAL SQ SCH ×2 (09:51→21:46)
[2021-08-28] MEDS: ACETAMINOPHEN 500 MG TABLET (FP) PO PRN (14:14)
[2021-08-28] MEDS: ATORVASTATIN CA 80 MG TABLET (FP) PO SCH (21:46)
[2021-08-29] MEDS: ACETAMINOPHEN 500 MG TABLET (FP) PO PRN
[2021-08-29 07:00] LABS: CALCIUM 9.3 mg/dL (8.5-10.1)
[2021-08-29 07:01] LABS: ALBUMIN 3.9 g/dl (3.4-5.0); BLOOD UREA NITROGEN 26.4 mg/dL (7-18)
[2021-08-29 07:02] LABS: CREATININE 1.2 mg/dL (0.55-1.3)
[2021-08-29 07:04] LABS: BILIRUBIN,TOTAL 1.2 mg/dL (0.2-1); TOT PROT 7.2 g/dl (6.4-8.2)
[2021-08-29] MEDS: TAMSULOSIN HCL 0.4 MG CAP PO SCH (07:57)
[2021-08-29] MEDS: ASPIRIN/DIPYRIDAMOLE 25 MG/200 MG CAPSULE PO SCH ×2 (09:43→21:11)
[2021-08-29] MEDS: metoPROLOL SUCCINATE 25 MG TAB.SR.24H (FP) PO SCH (09:43)
[2021-08-29] MEDS: HEPARIN NA (PORCINE) 5,000 UNITS/ML 1ML VIAL SQ SCH ×2 (09:43→21:11)
[2021-08-29] MEDS: ATORVASTATIN CA 80 MG TABLET (FP) PO SCH (22:39)
[2021-08-30] MEDS: ACETAMINOPHEN 500 MG TABLET (FP) PO PRN (01:03)
[2021-08-30 10:15] VITALS: BP 142/65; PULSE 74; TEMP 98
[2021-08-30] MEDS: TAMSULOSIN HCL 0.4 MG CAP PO SCH (10:17)
[2021-08-30] MEDS: ASPIRIN/DIPYRIDAMOLE 25 MG/200 MG CAPSULE PO SCH (10:17)
[2021-08-30] MEDS: metoPROLOL SUCCINATE 25 MG TAB.SR.24H (FP) PO SCH (10:17)
[2021-08-30] MEDS: HEPARIN NA (PORCINE) 5,000 UNITS/ML 1ML VIAL SQ SCH (10:17)
[2021-08-30 16:38] LABS: CHLORIDE 103 mmol/L (98-107); SODIUM 136 mmol/L (136-145)
[2021-08-30 16:41] LABS: ANION GAP 6 MMOL/L (8-16); BLOOD UREA NITROGEN 19.2 mg/dL (7-18); CO2 27 mmol/L (21-32); GLUCOSE,RANDOM 112 mg/dL (74-106); MAGNESIUM 2.5 mg/dL (1.8-2.4)
[2021-08-30] MEDS ORDERED: POTASSIUM CHLORIDE TABS 20 MEQ TABLET.ER (FP) PO ONE (16:43)
[2021-08-30 16:45] LABS: CREATININE 1.1 mg/dL (0.55-1.3)
== END 2021-08-30 16:45 | disposition home or self-care (01) | DRG 66 ==
LOC: JER 09:02 → UNDOADMOB 09:19 → JERBED 09:19 → INTOOBSV 09:19 → JERBED 14:19 → J4S 21:16 → OBSVTOIN 08-28 06:40
PROVIDERS: ADMIT Family Medicine; ATTEND Family Medicine
DX: I63.89 Other cerebral infarction (principal); I25.10 Atherosclerotic heart disease of native coronary artery without angina pectoris; I10 Essential (primary) hypertension; I25.2 Old myocardial infarction; N40.0 Benign prostatic hyperplasia without lower urinary tract symptoms; E78.5 Hyperlipidemia, unspecified; R20.2 Paresthesia of skin; G20 Parkinson's disease
CPT/HCPCS: 36415; 70450-TC; 70496-TC; 70498-TC; 70551-TC; 72125-TC; 80048; 80053; 80061; 81003; 82550; 82962; 83036; 83735; 84443; 84484; 85025; 85610; 85730; 86850; 86900; 86901; 93005; 93010; 93306-TC; 97116-GP; 97161-GP; 99285-25; C9803; G0378; J1644; U0003; U0005